=== PATIENT | female | born 1940 | race Caucasian/White ===

== ENCOUNTER 2017-10-08 13:14 | Outpatient (CLI) | payer MEDICARE | END 2017-10-08 13:15 | disposition home or self-care (01) | LOC: BICMAMMO 13:14 | PROVIDERS: ATTEND Internal Medicine | DX: Z12.31 Encounter for screening mammogram for malignant neoplasm of breast (principal); Z85.820 Personal history of malignant melanoma of skin | CPT/HCPCS: 77063; 77067 ==

== ENCOUNTER 2018-03-01 13:30 | Outpatient (CLI) | payer MEDICARE ==
--- NOTE | 2018-03-01 16:33 | BD ---
DEXA BONE DENSITY STUDY: Date: 03/01/18 HISTORY: 78-year-old postmenopausal female for screening for osteoporosis. COMPARISON: None. FINDINGS: Lumbar Spine: BMD (g/cm2) L1 1.122 T-Score: 1.2 L2 1.232 T-Score: 1.9 L3 1.368 T-Score: 2.6 L4 1.280 T-Score: 2.0 L1-L4 1.255 T-Score: 1.9 Femoral Neck: 0.593 T-Score: -2.3 Total Femur: 0.763 T-Score: -1.5 IMPRESSION: Osteopenia. This patient has a 10 year WHO fracture risk of a major osteoporotic fracture of 19% and of a hip fracture of 6%. POS: [facility]
== END 2018-03-01 13:31 | disposition home or self-care (01) ==
LOC: BICMAMMO 13:30
PROVIDERS: ATTEND Obstetrics & Gynecology
DX: Z13.820 Encounter for screening for osteoporosis (principal); M85.859 Other specified disorders of bone density and structure, unspecified thigh
CPT/HCPCS: 77080